=== PATIENT | female | born 1950 | race Caucasian/White ===

== ENCOUNTER 2016-06-27 22:39 | Inpatient (IN) | payer OTHER ==
[~2016-06-27] VITALS: Ht 152.4 cm; Wt 84.0 kg
[~2016-06-27 22:39] MED LIST: ASPI-664 PO; CLOP75TA27 PO; LOSA1TAB9 PO; METF-480 PO; NPH,100C2 SQ; SITA100T8 PO
[2016-06-27 23:34] LABS: BASOPHILS % 1.2 % (0.0-2.0); EOSINOPHILS # 0.1 10^3/ul (0.0-0.5); EOSINOPHILS % 2.7 % (0.0-7.0); HEMATOCRIT 39.6 % (37.0-47.0); HEMOGLOBIN 13.4 g/dl (12.0-16.0); LYMPHOCYTES # 1.2 10^3/ul (0.8-2.9); LYMPHOCYTES % 34.7 % (15.0-51.0); MEAN CORPUSCULAR HEMOGLOBIN 29.9 pg (29.0-33.0); MEAN CORPUSCULAR HGB CONC 33.8 g/dl (32.0-37.0); MEAN CORPUSCULAR VOLUME 88.5 fl (82.0-101.0); MEAN PLATELET VOLUME 9.1 fl (7.4-10.4); MONOCYTE # 0.4 10^3/ul (0.3-0.9); MONOCYTES % 10.5 % (0.0-11.0); NEUTROPHIL # 1.8 10^3/ul (1.6-7.5); NEUTROPHILS % 50.9 % (39.0-77.0); PLATELET COUNT 124 10^3/UL (140-440); RED BLOOD COUNT 4.47 10^6/ul (4.20-5.40); RED CELL DISTRIBUTION WIDTH 13.9 % (11.5-14.5); UNCORRECTED WBC 3.5 10^3/ul (4.8-10.8); WHITE BLOOD COUNT 3.5 10^3/ul (4.8-10.8)
[2016-06-27 23:35] LABS: CONDITION 1
[2016-06-27 23:43] LABS: ALBUMIN 4.6 g/dl (3.3-4.9); CHLORIDE 101 mmol/L (97-110); INR 1.01; PROTIME 13.3 Sec (12.2-14.2); SODIUM 144 mmol/L (135-144)
[2016-06-27 23:44] LABS: PARTIAL THROMBOPLASTIN TIME 38.2 Sec (25.0-35.0); POTASSIUM 4.9 mmol/L (3.5-5.1)
[2016-06-27 23:46] LABS: ALANINE AMINOTRANSFERASE 63 IU/L (13-69); ALBUMIN/GLOBULIN RATIO 1.02; ALKALINE PHOSPHATASE 213 IU/L (42-121); ANION GAP 26 (8-16); ASPARTATE AMINO TRANSFERASE 54 IU/L (15-46); BILIRUBIN,INDIRECT 0.1 mg/dl (0-1.1); BILIRUBIN,TOTAL 0.1 mg/dl (0.2-1.3); BLOOD UREA NITROGEN 16 mg/dl (7-20); CARBON DIOXIDE 22 mmol/L (21-31); GLUCOSE 191 mg/dl (70-220); TOTAL PROTEIN 9.1 g/dl (6.1-8.1)
[2016-06-27 23:47] LABS: CALCIUM 9.5 mg/dl (8.4-10.2)
--- NOTE | 2016-06-27 23:53 | RADRPT ---
PROCEDURE: XR Chest. CLINICAL INDICATION: Chest pain. TECHNIQUE: Single frontal view of the chest was obtained COMPARISON: 01/31/2009. FINDINGS: Cardiomegaly. Lungs are substantially clear. There is no pleural effusion or pneumothorax. IMPRESSION: No acute cardiopulmonary disease. RPTAT: [facility] Physician Bubba Date Time Electronically viewed and signed by Cheryl Lacy Physician on 06/27/2016 23:53 RS/
[2016-06-27 23:55] LABS: B-TYPE NATRIURETIC PEPTIDE 183 PG/ML (0-125)
[2016-06-28 00:06] LABS: TROPONIN-I < 0.012 ng/ml (0.00-0.12)
--- NOTE | 2016-06-28 01:51 | ERA ---
ER Documentation Chief Complaint Date/Time DATE: 06/28/16 TIME: 01:50 Chief Complaint SOB HPI This is a 66 year female, no chest pain or shortness of breath via ambulance. Chest pain is pressure-like. Given nitro and filled with minimal relief. No nausea no vomiting no chills. No not other current complaints. No radiations. ROS All systems reviewed and are negative except as per history of present illness. Medications Home Meds Reported Medications Metformin* (Glucophage*) 850 Mg Tablet, 850 MG PO DAILY 04/23/13 Clopidogrel Bisulfate (Clopidogrel) 75 Mg Tablet, 75 MG PO DAILY 04/23/13 Aspirin (Aspirin) 81 Mg Tablet.dr, 81 MG PO DAILY 04/23/13 Nph, Human Insulin Isophane (Novolin N) 100 U/Ml Cartridge, 0 SQ BID 03/01/12 Losartan-Hydrochlorothiazide (Hyzaar) 1 Tab Tablet, 1 TAB PO DAILY 03/01/12 Sitagliptin* (Januvia*) 100 Mg Tablet, 100 MG PO DAILY 03/01/12 Allergies Allergies: Coded Allergies: No Known Allergy (Unverified , 03/01/12) PMhx/Soc History of Surgery: Yes (OPEN HEART SURGERY) Anesthesia Reaction: No Hx Neurological Disorder: No Hx Respiratory Disorders: No Hx Cardiac Disorders: Yes Hx Psychiatric Problems: No Hx Miscellaneous Medical Probl: No Hx Alcohol Use: No Hx Substance Use: No Hx Tobacco Use: No Smoking Status: Never smoker Physical Exam Vitals Vital Signs Date Time Temp Pulse Resp B/P Pulse Ox O2 Delivery O2 Flow Rate FiO2 06/28/16 01:00 80 18 136/65 97 Room Air 3.0 Nasal Cannula 06/27/16 23:24 84 19 130/58 98 Room Air 06/27/16 23:05 Nasal Cannula 2 06/27/16 22:52 98.1 89 17 114/63 95 Physical Exam Const: [] Head: Atraumatic Eyes: Normal Conjunctiva ENT: Normal External Ears, Nose and Mouth. Neck: Full range of motion..~ No meningismus. Resp: Clear to auscultation bilaterally Cardio: Regular rate and rhythm, no murmurs Abd: Soft, non tender, non distended. Normal bowel sounds Skin: No petechiae or rashes Back: No midline or flank tenderness Ext: No cyanosis, or edema Neur: Awake and alert Psych: Normal Mood and Affect Result Diagram: 06/27/16231706/27/168 Results 24 hrs Laboratory Tests Test 06/27/16 23:18 Activated Partial Thromboplast Time 38.2Sec Alanine Aminotransferase (ALT/SGPT) 63IU/L Albumin 4.6g/dl Albumin/Globulin Ratio 1.02 Alkaline Phosphatase 213IU/L Anion Gap 26 Aspartate Amino Transf (AST/SGOT) 54IU/L B-Type Natriuretic Peptide 183PG/ML Basophils # 0.010^3/ul Basophils % 1.2% Blood Urea Nitrogen 16mg/dl Calcium Level 9.5mg/dl Carbon Dioxide Level 22mmol/L Chloride Level 101mmol/L Creatinine 0.80mg/dl Direct Bilirubin 0.00mg/dl Eosinophils # 0.110^3/ul Eosinophils % 2.7% Globulin 4.50g/dl Glucose Level 191mg/dl Hematocrit 39.6% Hemoglobin 13.4g/dl INR International Normalized Ratio 1.01 Indirect Bilirubin 0.1mg/dl Lymphocytes # 1.210^3/ul Lymphocytes % 34.7% Mean Corpuscular Hemoglobin 29.9pg Mean Corpuscular Hemoglobin Concent 33.8g/dl Mean Corpuscular Volume 88.5fl Mean Platelet Volume 9.1fl Monocytes # 0.410^3/ul Monocytes % 10.5% Neutrophils # 1.810^3/ul Neutrophils % 50.9% Nucleated Red Blood Cells # 0.010^3/ul Nucleated Red Blood Cells % 0.0/100WBC Platelet Count 84329^3/UL Potassium Level 4.9mmol/L Prothrombin Time 13.3Sec Prothrombin Time Ratio 1.0 Red Blood Count 4.4710^6/ul Red Cell Distribution Width 13.9% Sodium Level 144mmol/L Total Bilirubin 0.1mg/dl Total Protein 9.1g/dl Troponin I < 0.012ng/ml White Blood Count 3.510^3/ul Procedures/MDM EKG: Rate/Rhythm: Normal Sinus Rhythm QRS, ST, T-waves: No changes consistent w/ acute ischemia Impression: No evidence of ischemia or arrhythmia Chest X-ray 1V Interpreted by me: Soft Tissue: No acute abnormalities Bones: No acute abnormalities Mediastinum/Cardiac Silhouette/Lungs: No acute abnormalities Patient's symptoms are concerning for cardiac cause will require inpatient workup and continuous monitoring. Further w/u for ischemia, arrhythmia, PE or dissection will be deferred to the inpatient team. Accepting Care Team: Current data and ongoing care discussed. Time: 1 AM Primary Provider: Hospitalist Consulting: [XOXOXO] Outstanding Data: none Departure Diagnosis: Primary Impression: Chest pain Qualified Code: R07.9 - Chest pain, unspecified type Condition: Serious JOANIE PAGAN Jun 28, 2016 01:51
[2016-06-28] MEDS ORDERED: ZOLPIDEM 5 MG TAB PO PRN (03:30)
[2016-06-28] MEDS ORDERED: NITROGLYCERIN (SL) 0.4 MG TAB SL PRN (03:30)
[2016-06-28] MEDS ORDERED: ACETAMINOPHEN 325 MG TAB PO PRN (03:30)
[2016-06-28] MEDS ORDERED: HYDROCODONE/APAP (5/325) TAB PO PRN (03:30)
[2016-06-28] MEDS ORDERED: ONDANSETRON 4 MG INJ IV PRN (03:30)
[2016-06-28] MEDS ORDERED: morphine 2 MG INJ IV PRN (03:30)
[2016-06-28] MEDS ORDERED: NACL 0.9% 3 ML SYG IV SCH (03:30)
[2016-06-28] MEDS ORDERED: GLUCOSE GEL 15 GRAM TUBE BUCCAL PRN (04:00)
[2016-06-28] MEDS ORDERED: GLUCAGON 1 MG INJ IM PRN (04:00)
[2016-06-28] MEDS ORDERED: DEXTROSE 50% 50 ML SYRINGE IV PRN ×2 (04:00)
[2016-06-28] MEDS ORDERED: GLUCOSE GEL 15 GRAM TUBE PO PRN ×2 (04:00)
[2016-06-28 06:08] LABS: HEMOGLOBIN 12.3 g/dl (12.0-16.0); MEAN CORPUSCULAR HEMOGLOBIN 30.2 pg (29.0-33.0); MEAN CORPUSCULAR HGB CONC 34.2 g/dl (32.0-37.0); MEAN CORPUSCULAR VOLUME 88.1 fl (82.0-101.0); MEAN PLATELET VOLUME 8.9 fl (7.4-10.4); PLATELET COUNT 110 10^3/UL (140-440); RED BLOOD COUNT 4.09 10^6/ul (4.20-5.40); RED CELL DISTRIBUTION WIDTH 13.6 % (11.5-14.5); UNCORRECTED WBC 2.9 10^3/ul (4.8-10.8); WHITE BLOOD COUNT 2.9 10^3/ul (4.8-10.8)
[2016-06-28 06:13] LABS: CONDITION 1
[2016-06-28 06:21] LABS: POTASSIUM 5.3 mmol/L (3.5-5.1)
[2016-06-28 06:24] LABS: CALCIUM 9.6 mg/dl (8.4-10.2); CREATININE 0.73 mg/dl (0.44-1.00); MAGNESIUM 1.8 mg/dl (1.7-2.5)
[2016-06-28 06:25] LABS: CHOL/HDL RATIO 7.2 RATIO
[2016-06-28 06:32] VITALS: TEMP 98.4
[2016-06-28] MEDS: INSULIN ASPART [NOVOLOG] 3 ML PEN SC SCH ×7 (08:00→21:00)
[2016-06-28] MEDS: metFORMIN 850 MG TAB PO SCH (08:00)
[2016-06-28] MEDS ORDERED: NON-FORMULARY/PATIENT OWN MED (Sitagliptin* (Januvia*) 100 MG) PO SCH (09:00)
[2016-06-28] MEDS: INSULIN GLARGINE [LANtus] 3 ML PEN SC SCH (09:00)
[2016-06-28] MEDS ORDERED: LOSARTAN 50 MG TAB PO SCH (09:00)
[2016-06-28] MEDS: LINAGLIPTIN 5 MG TABLET PO SCH (09:00)
[2016-06-28 09:52] LABS: EOSINOPHILS # 0.1 10^3/ul (0.0-0.5); LYMPHOCYTES # 0.8 10^3/ul (0.8-2.9); MONOCYTE # 0.5 10^3/ul (0.3-0.9); NEUTROPHIL # 1.5 10^3/ul (1.6-7.5)
--- NOTE | 2016-06-28 09:59 | HP ---
DATE OF ADMISSION: 06/27/2016 TIME: 6:50 a.m. CHIEF COMPLAINT: Chest pain. HISTORY OF PRESENT ILLNESS: The patient is a 66-year-old female with history of coronary artery dis ease, status post CABG in the past with 4-vessels bypass as well as multiple stents placed. Patient also has a history of hypertension and insulin-dependent diabetes. The patient presents with chest pain. She describes it as a pressure-like pain that began last night. There is radiation to her l eft arm and back. In the ER EKG showed no signs of acute ischemia. Troponins were negative. She s tates that her chest pain at this time has now resolved. PAST MEDICAL HISTORY: As per HPI. HOME MEDICATIONS: 1. Metformin. 2. Plavix. 3. Aspirin. 4. NPH Insulin. 5. Losartan. 6. Hydrochlorothiazide. 7. Januvia. ALLERGIES: NO KNOWN DRUG ALLERGIES. FAMILY HISTORY: Brother with heart disease, . SOCIAL HISTORY: Denies any alcohol, tobacco, or drug abuse. REVIEW OF SYSTEMS: A 12-point review of systems negative except that stated in HPI. PHYSICAL EXAMINATION: VITAL SIGNS: Temperature is 98.1, pulse 76, respiratory rate is 18, BP 169/72, saturation 98% on 3 liters. GENERAL: No acute distress, alert and oriented. HEENT: Normocephalic, atraumatic. LUNGS: Clear to auscultation. CARDIOVASCULAR: Regular rate and rhythm. ABDOMEN: Nondistended, nontender, soft, obese. EXTREMITIES: No clubbing, cyanosis, or edema. LABORATORIES: White count is 2.9; hemoglobin is 12.3, platelets 110. Chemistry: Sodium is 141, po tassium is 5.3, anion gap is 19, alkaline phosphatase is 213. Troponins are negative x2. INR is 1. 01. DIAGNOSTICS: Chest x-ray shows no acute disease. EKG shows sinus rhythm. No evidence of acute isc hemia or arrhythmia. ASSESSMENT AND PLAN: 1. Chest pain. The patient does have extensive history of coronary artery disease with a 4-vessel bypass in the past and multiple stents having been placed. We will continue the patient's home cardi ac meds. We will get a cardiology evaluation and a 2D echo. Trend the final troponin. 2. Insulin-dependent diabetes. We will treat with subcutaneous insulin and sliding scale. Check a n A1c and lipid panel. 3. Hypertension. Continue home Losartan and hydrochlorothiazide. 4. Thrombocytopenia is mild. We will monitor. 5. Prophylaxis: Lovenox. Dictated By: AVANI LEYVA/NTS Conf#: [id number] DID#: [id number]
[2016-06-28] MEDS: ENOXAPARIN 40 MG/0.4 ML SYG SC SCH (11:03)
[2016-06-28] MEDS: CLOPIDOGREL 75 MG TAB PO SCH (11:23)
--- NOTE | 2016-06-28 16:09 | CONS ---
Date/Time of Note Date/Time of Note DATE: 06/28/16 TIME: 16:07 Consult Date/Type/Reason Admit Date/Time Initial Consult Date Type of Consultation: internal medicine Subjective Patient denies any chest pain this morning in the emergency room Appears comfortable at rest No new events Objective Vital Signs Date Time Temp Pulse Resp B/P Pulse Ox O2 Delivery O2 Flow Rate FiO2 06/28/16 13:42 75 16 134/70 96 Room Air 06/28/16 09:00 3.0 06/28/16 06:32 98.4 PHYSICAL EXAMINATION: VITAL SIGNS: As above well-nourished well-developed [place] lady Respiratory Clear to auscultation no added sounds no rales or wheezes CARDIOVASCULAR: Regular rate and rhythm. ABDOMEN: Nondistended, nontender, soft, obese. EXTREMITIES: No clubbing, cyanosis, or edema. Results/Medications Result Diagram: 06/28/16 0533 06/28/16 0533 Results 24 hrs Laboratory Tests Test 06/27/16 23:18 06/28/16 05:33 06/28/16 10:07 06/28/16 12:20 Activated Partial Thromboplast Time 38.2 H Alanine Aminotransferase (ALT/SGPT) 63 Albumin 4.6 Albumin/Globulin Ratio 1.02 Alkaline Phosphatase 213 H Anion Gap 26 H 19 #H Aspartate Amino Transf (AST/SGOT) 54 H B-Type Natriuretic Peptide 183 H Basophils # 0.0 Basophils % 1.2 Blood Urea Nitrogen 16 17 Calcium Level 9.5 9.6 Carbon Dioxide Level 22 28 Chloride Level 101 103 Creatinine 0.80 0.73 Direct Bilirubin 0.00 Eosinophils # 0.1 0.1 Eosinophils % 2.7 3.0 Globulin 4.50 H Glucose Level 191 153 Hematocrit 39.6 36.0 L Hemoglobin 13.4 12.3 INR International Normalized Ratio 1.01 Indirect Bilirubin 0.1 Lymphocytes # 1.2 0.8 Lymphocytes % 34.7 27.0 Mean Corpuscular Hemoglobin 29.9 30.2 Mean Corpuscular Hemoglobin Concent 33.8 34.2 Mean Corpuscular Volume 88.5 88.1 Mean Platelet Volume 9.1 8.9 Monocytes # 0.4 0.5 Monocytes % 10.5 17.0 H Neutrophils # 1.8 1.5 L Neutrophils % 50.9 53.0 Nucleated Red Blood Cells # 0.0 Nucleated Red Blood Cells % 0.0 Platelet Count 124 L 110 L Potassium Level 4.9 5.3 H Prothrombin Time 13.3 Prothrombin Time Ratio 1.0 Red Blood Count 4.47 4.09 L Red Cell Distribution Width 13.9 13.6 Sodium Level 144 145 H Total Bilirubin 0.1 L Total Protein 9.1 H Troponin I < 0.012 < 0.010 < 0.010 White Blood Count 3.5 L 2.9 L Cholesterol Level 262 H Cholesterol/HDL Ratio 7.2 Differential Comment MANUAL DIFF HDL Cholesterol 36 Hemoglobin A1c 6.0 H LDL Cholesterol, Calculated 127 Magnesium Level 1.8 Triglycerides Level 494 H Bedside Glucose 131 Test 06/28/16 16:02 Bedside Glucose 219 Medications Current Medications Ondansetron HCl (Zofran Inj) 4 mg Q6H PRN IV NAUSEA AND/OR VOMITING; Start 06/28 at 03:30 Acetaminophen (Tylenol Tab) 650 mg Q6H PRN PO PAIN LEVEL 1-3 OR FEVER; Start at 03:30 Acetaminophen/ Hydrocodone Bitart ([place] (5/325)) 1 tab Q6H PRN PO MODERATE PAIN LEVEL 4-6; Start 06/28/16 at 03:30 Morphine Sulfate (morphine) 2 mg Q4H PRN IV SEVERE PAIN LEVEL 7-10; Start at 03:30 Zolpidem Tartrate (Ambien) 5 mg QHS PRN PO SLEEP; Start 06/28/16 at 03:30 Enoxaparin Sodium (Lovenox) 40 mg DAILY SC Last administered on 06/28/16 11:03 ; Admin Dose 40 MG; Start 06/28/16 at 09:00 Aspirin (Aspirin) 81 mg DAILY PO ; Start 06/29/16 at 09:00 Nitroglycerin (Nitroglycerin (Sl Tab) 0.4 Mg) 1 tab Q5M PRN SL CHEST PAIN; Start 06/28/16 at 03:30 Clopidogrel Bisulfate (plaVIX) 75 mg DAILY PO Last administered on 06/28/16 11: 23; Admin Dose 75 MG; Start 06/28/16 at 09:00 Diagnostic Test (Pha) (Accucheck) 1 ea 02 XX ; Start 06/29/16 at 02:00 Miscellaneous Information 1 ea NOTE XX ; Start 06/28/16 at 04:00 Glucose (Glutose) 15 gm Q15M PRN PO DECREASED GLUCOSE; Start 06/28/16 at 04:00 Glucose (Glutose) 22.5 gm Q15M PRN PO DECREASED GLUCOSE; Start 06/28/16 at 04:00 Dextrose (D50w Syringe) 25 ml Q15M PRN IV DECREASED GLUCOSE; Start 06/28/16 at 04:00 Dextrose (D50w Syringe) 50 ml Q15M PRN IV DECREASED GLUCOSE; Start 06/28/16 at 04:00 Glucagon (Glucagen) 1 mg Q15M PRN IM DECREASED GLUCOSE; Start 06/28/16 at 04:00 Glucose (Glutose) 15 gm Q15M PRN BUCCAL DECREASED GLUCOSE; Start 06/28/16 at 04: 00 Linagliptin (Tradjenta) 5 mg DAILY PO ; Start 06/28/16 at 09:00 Insulin Aspart (Novolog Insulin Pen) NOVOLOG *MILD* ALGORI... Q4 SC ; Start 06/28 at 09:00 Insulin Glargine (Lantus) 10 unit QAM SC ; Start 06/28/16 at 09:00 Hydrochlorothiazide (Hydrochlorothiazide) 12.5 mg DAILY PO ; Start 06/29/16 at 09:00 Losartan Potassium (Cozaar) 50 mg DAILY PO ; Start 06/29/16 at 09:00 Assessment/Plan Chief Complaint/Hosp Course ASSESSMENT AND PLAN: 1. Chest pain. Extensive cardiac history with 4 vessel coronary artery bypass graft surgery and stents placed. We'll resume outpatient medications obtained echocardiogram and have cardiology evaluation. May require outpatient stress test. 2. Insulin-dependent diabetes. We will treat with subcutaneous insulin and sliding scale. Check an A1c and lipid panel. 3. Hypertension. Continue home Losartan and hydrochlorothiazide. 4. Thrombocytopenia is mild. Continue to monitor 5. Prophylaxis: Lovenox. Problems: TONY RODRIGUEZ MD, [facility] Jun 28, 2016 16:09
[2016-06-28 17:35] VITALS: Ht 152.4 cm; Wt 84.0 kg
[2016-06-28 17:55] VITALS: BP 151/68; PULSE 81; RESP 20
--- NOTE | 2016-06-28 18:44 | CONS ---
DATE OF ADMISSION: 06/28/2016 DATE OF CONSULTATION: 06/28/2016 REFERRING PHYSICIAN: Dr. Molina and Dr. Hatfield. REASON FOR CONSULTATION: Chest pain. CHIEF COMPLAINT: Chest pain, shortness of breath. HISTORY OF PRESENT ILLNESS: Thank you for this referral. History was from the patient, discussion with her [id number]. This is a pleasant 66-year-old [place] female with history of coronary a rtery disease, status post 4-vessel bypass surgery in 2003, status post PCI, last one was about 6 ye ars ago, who came to emergency room with above complaint. The patient apparently has had chest pain for many months now, anteriorly. She says she had a stress test done by her cup trimming machine operator, ____ , about a year ago. She was told she had "50% to 60% blockage." She also had an episode of shortne ss of breath. She gets short of breath with any kind of activity. She says she was told by her car diologist that she had a "weak valve. I need to have a surgery." She came into emergency room this morning when her symptoms got severely worse suddenly. PAST MEDICAL HISTORY: Coronary artery disease, status post bypass graft, history of hypertension, d iabetes, dyslipidemia, obesity. MEDICATIONS AT HOME: Include: 1. Metformin. 2. Plavix. 3. Aspirin. 4. Insulin. 5. Losartan. 6. Hydrochlorothiazide. 7. Januvia. ALLERGIES: NO KNOWN DRUG ALLERGIES. FAMILY HISTORY: Brother with heart disease, . SOCIAL HISTORY: The patient quit smoking when she had her bypass surgery. REVIEW OF SYSTEMS: Negative, all except for above-mentioned. PHYSICAL EXAMINATION: VITAL SIGNS: Temperature 98.4, heart rate of 75, blood pressure 134/70, respiration rate of 18, sat urating 96%. HEENT: Normocephalic, atraumatic. Pupils equal and round. CARDIOVASCULAR: Regular rate and rhythm. Systolic ejection murmur radiating to carotids. PULMONARY: With no wheezes or rales. GASTROINTESTINAL: Obese, soft, nontender. EXTREMITIES: Trivial edema. NEUROLOGIC: Awake and alert. PSYCHIATRIC: Calm, pleasant. LABORATORY: Sodium 145, potassium 5.3, BUN of 17, creatinine 0.73, glucose 153. Hemoglobin A1c of 6. Cholesterol 262 with LDL of 127, triglyceride of 494, HDL 36. BNP is 183. EKG was personally reviewed, which showed normal sinus rhythm. Anterior infarct, age undetermined. Echocardiogram was personally reviewed. It showed normal LV systolic function. Probably moderate aortic stenosis. ASSESSMENT AND PLAN 1. Chest pain syndrome, rule acute coronary syndrome. 2. Coronary artery disease. 3. History of coronary bypass graft. 4. History of percutaneous coronary intervention. 5. Hypertension. 6. Morbid obesity. 7. Diabetes 8. Dyslipidemia. 9. Aortic stenosis, does not appear to be severe though. RECOMMENDATIONS: I will continue with the aspirin and Plavix. Losartan and hydrochlorothiazide jennifer l be continued. The patient will be started on a beta-estela. I will start her on Toprol-XL 25 at bedtime. Also, start her on Lipitor at nighttime. Rule out myocardial infarction. I will order a Lexiscan stress test for tomorrow to rule out significant obstructive coronary artery disease. Nit ro will be added, too. Dictated By: TALISHA CH MD AV/NTS Conf#: [id number] DID#: [id number] CC: TONY MOLINA MD; AVANI HATFIELD MD;*End*
[2016-06-28 20:03] VITALS: BP 144/67; PULSE 75; RESP 20
[2016-06-28] MEDS ORDERED: ATORVASTATIN 40 MG TAB PO SCH (21:00)
[2016-06-28] MEDS ORDERED: METOPROLOL (XL) 25 MG TAB PO SCH (21:00)
[2016-06-28] MEDS: ISOSORBIDE DINITRATE 5 MG TAB PO SCH (21:14)
[2016-06-29] VITALS (9 sets, daily range): BP systolic 104–143; BP diastolic 53–63; PULSE 58–104; RESP 18–19
[2016-06-29] MEDS ORDERED: ACCUCHECK AT 2AM (Patients on SS coverage) XX SCH ×2 (02:00)
[2016-06-29 07:03] LABS: HEMATOCRIT 38.2 % (37.0-47.0); HEMOGLOBIN 12.8 g/dl (12.0-16.0); MEAN CORPUSCULAR HEMOGLOBIN 29.6 pg (29.0-33.0); MEAN CORPUSCULAR HGB CONC 33.4 g/dl (32.0-37.0); MEAN CORPUSCULAR VOLUME 88.6 fl (82.0-101.0); MEAN PLATELET VOLUME 8.9 fl (7.4-10.4); PLATELET COUNT 117 10^3/UL (140-440); RED BLOOD COUNT 4.31 10^6/ul (4.20-5.40); RED CELL DISTRIBUTION WIDTH 13.9 % (11.5-14.5); UNCORRECTED WBC 3.1 10^3/ul (4.8-10.8); WHITE BLOOD COUNT 3.1 10^3/ul (4.8-10.8)
[2016-06-29 07:07] LABS: CONDITION 1; LH ANALYZER COMMENTS 1
[2016-06-29 07:09] LABS: POTASSIUM 4.8 mmol/L (3.5-5.1)
[2016-06-29 07:11] LABS: BILIRUBIN,INDIRECT 0.4 mg/dl (0-1.1); BILIRUBIN,TOTAL 0.4 mg/dl (0.2-1.3); CREATININE 0.75 mg/dl (0.44-1.00)
[2016-06-29 07:12] LABS: CALCIUM 10.1 mg/dl (8.4-10.2)
[2016-06-29] MEDS: metFORMIN 850 MG TAB PO SCH (08:00)
[2016-06-29] MEDS: INSULIN ASPART [NOVOLOG] 3 ML PEN SC SCH ×3 (08:05→17:34)
[2016-06-29] MEDS: LINAGLIPTIN 5 MG TABLET PO SCH (08:06)
[2016-06-29] MEDS: ENOXAPARIN 40 MG/0.4 ML SYG SC SCH (08:14)
[2016-06-29] MEDS: CLOPIDOGREL 75 MG TAB PO SCH (08:14)
[2016-06-29] MEDS: ISOSORBIDE DINITRATE 5 MG TAB PO SCH ×2 (08:15→13:44)
[2016-06-29] MEDS: INSULIN GLARGINE [LANtus] 3 ML PEN SC SCH (08:16)
[2016-06-29 08:49] LABS: MAGNESIUM 1.5 mg/dl (1.7-2.5)
[2016-06-29 08:51] LABS: THYROID STIMULATING HORMONE 2.79 MIU/L (0.465-4.680)
[2016-06-29] MEDS ORDERED: ASPIRIN 81 MG TAB PO SCH (09:00)
[2016-06-29] MEDS ORDERED: HYDROCHLOROTHIAZIDE 12.5 MG CAP PO SCH (09:00)
[2016-06-29] MEDS ORDERED: LOSARTAN 50 MG TAB PO SCH (09:00)
--- NOTE | 2016-06-29 09:14 | RADRPT ---
Echocardiogram Report Patient Name: LEVY RODRIGUEZ Gender: Female Date: 1950 Study Date: 28-Jun-2016 Motion Picture Actor: Eben Modi [facility] Location: [facility] Ref. Physician: AVANI AVILES Quality: Good Procedures: Transthoracic echocardiogram with complete 2D, M-Mode, and doppler examination. Indications: Chest Pain. 2D/M Mode Doppler Measurement Value Normal Ranges Measurement Value Normal Ranges LVIDd 2D 4.5 3.5 - 5.6 cm PATRICE Vmax 1.2 cm2 LVIDs 2D 2.0 2.1 - 4.1 cm PATRICE VTI 1.5 cm2 FS 2D 54.8 % AV Mean Markell 1.8 m/sec LVPWd 2D 0.9 0.6 - 1.1 cm AV Mean PG 14.0 mmHg IVSd 2D 0.9 0.6 - 1.1 cm AV Peak Markell 2.5 m/sec IVS/LVPW 2D 1.0 AV Peak PG 24.0 mmHg AoR Diam 2D 2.4 2.0 - 3.7 cm AV VTI 55.4 cm LA/Ao 2D 2 0 - 1 LVOT Mean Markell 0.8 m/sec EDV 2D 89.3 cm3 LVOT Mean PG 3.0 mmHg ESV 2D 8.2 cm3 LVOT Peak Markell 1.1 m/sec LA Dimen 2D 4.2 2.3 - 4.0 cm LVOT Peak PG 5.0 mmHg LVOT Diam 1.9 cm LVOT VTI 28.2 cm LVOT Area 2.8 cm2 MV E Peak Markell 1.1 m/sec MV A Peak Markell 0.8 m/sec MV E/A 1.3 MV Decel Time 239 msec MV E/A 1.3 TR Peak Markell 2.3 m/sec TR Peak PG 22.0 mmHg RVSP 25.0 mmHg Findings Left Ventricle: Normal left ventricular systolic function. Normal left ventricular cavity size. Normal left ventricular wall thickness. Ejection fraction is visually estimated at 65 %. Tissue Doppler/Mitral Doppler indices are within normal limits. Right Ventricle: Normal right ventricular size. Normal right ventricular systolic function. Left Atrium: There is mild enlargement of left atrium. Right Atrium: The right atrium is normal in size. Mitral Valve: Mitral valve leaflets appear mildly thickened. Mild mitral annular calcification. Trace mitral regurgitation. Aortic Valve: Aortic valve Max velocity 2.46 m/sec. Max PG 24.00 mmHg. Mean PG 14.00 mmHg. Aortic valve area 1.45 cm2. Aortic sclerosis without stenosis. Aortic cusps appear moderately calcified. Trace aortic valve regurgitation. Tricuspid Valve: Normal appearance of the tricuspid valve. Estimated peak PA systolic pressure 25 mmHg. There is mild tricuspid regurgitation. Pericardium: Normal pericardium with no significant pericardial effusion. Aorta: Normal aortic root. IVC: Normal size and normal respiratory collapse consistent with normal right atrial pressure. Conclusions 1.Normal left ventricular systolic function. Normal left ventricular cavity size. Normal left ventricular wall thickness. Ejection fraction is visually estimated at 65 %. Tissue Doppler/Mitral Doppler indices are within normal limits. 2.There is mild enlargement of left atrium. 3.Mitral valve leaflets appear mildly thickened. Mild mitral annular calcification. Trace mitral regurgitation. 4.Aortic valve Max velocity 2.46 m/sec. Max PG 24.00 mmHg. Mean PG 14.00 mmHg. Aortic valve area 1.45 cm2. Aortic sclerosis without stenosis. Aortic cusps appear moderately calcified. Trace aortic valve regurgitation. 5.Normal appearance of the tricuspid valve. Estimated peak PA systolic pressure 25 mmHg. There is mild tricuspid regurgitation. Electronically Signed By: Alvaro Figueroa 28-Jun-2016 15:40:50 -0800 Patient Name: LEVY RODRIGUEZ Study Date: 28-Jun-2016 [id number]
[2016-06-29] MEDS ORDERED: REGADENOSON 0.4 MG/5 ML SYG ONE (09:22)
[2016-06-29 09:27] LABS: CREATINE KINASE < 20 IU/L (23-200)
[2016-06-29 09:33] LABS: CK-MB 0.22 ng/ml (0.0-2.4); EOSINOPHILS # 0.1 10^3/ul (0.0-0.5); LYMPHOCYTES # 1.2 10^3/ul (0.8-2.9); MONOCYTE # 0.3 10^3/ul (0.3-0.9); NEUTROPHIL # 1.4 10^3/ul (1.6-7.5)
[2016-06-29 09:38] LABS: TROPONIN-I < 0.010 ng/ml (0.00-0.12)
--- NOTE | 2016-06-29 10:35 | PN ---
DATE: 06/29/2016 CARDIOLOGY FOLLOWUP NOTE SUBJECTIVE: Discussed with the staff. Rhythm strip was reviewed. Patient with no more chest pain or pressure. No palpitations. MEDICATIONS: Reviewed. PHYSICAL EXAMINATION: VITAL SIGNS: Temperature 98.6, heart rate of 60, blood pressure 108/53, respiration rate of 18, sat urating 98%. HEENT: Normocephalic, atraumatic. Pupils are equal. CARDIOVASCULAR: Regular rate and rhythm. PULMONARY: With no wheezes, no rales. GASTROINTESTINAL: Soft, nontender. EXTREMITIES: Trivial edema. NEUROLOGIC: Awake and alert. PSYCHIATRIC: Calm, pleasant. LABORATORY: Sodium 143, potassium 4.8, BUN of 21, creatinine 0.75, glucose 163. BNP 301. WBC of 3 .1, hemoglobin 12.8, platelets of 117. ASSESSMENT AND PLAN 1. Chest pain syndrome, rule acute coronary syndrome. 2. History of coronary artery disease, status post coronary bypass graft, history of percutaneous c oronary intervention. 3. Hypertension. 4. Mild to moderate aortic stenosis. 5. Diabetes. 6. Dyslipidemia. RECOMMENDATIONS: We will continue with the current cardiac care. Lexiscan stress test today is pen ding. Dictated By: TALISHA CH MD AV/JOSE EDUARDO Conf#: [id number] DID#: [id number] CC: AVANI AVILES MD;*End*
--- NOTE | 2016-06-29 12:48 | RADRPT ---
PROCEDURE: Lexiscan myocardial perfusion study CLINICAL INDICATION: 66 -year-old patient complaining of chest pain. TECHNIQUE: Lexiscan 0.4 mg intravenously separate acquisition gated myocardial perfusion SPECT usi ng Tc 99m Myoview 31.8 mCi intravenously at stress and Tc-99m Myoview, 10.2 mCi intravenously at res t was performed using the rest/stress sequence. Poststress Myoview SPECT images were obtained in th e supine position. COMPARISON: No prior studies. FINDINGS: Perfusion images reveal no evidence of perfusion defects. Lexiscan post stress gated SPECT images demonstrate no wall motion abnormalities. IMPRESSION: 1. No evidence of perfusion defects. 2. No wall motion abnormalities. 3. The left ventricle ejection fraction at stress is greater than 70%. A call report was made to Dr. Figueroa 12:46 p.m. on June 29, 2016 RPTAT: HH .Hayde Mak MD, Date Time Electronically viewed and signed by .Hayde Mak MD, MD on 06/29/2016 12:48 .L/
--- NOTE | 2016-06-29 15:06 | DS ---
Date/Time of Note Date/Time of Note DATE: 06/29/16 TIME: 15:01 Discharge Summary Admission/Discharge Info Admit Date/Time Jun 28, 2016 at 00:29 Discharge Date/Time Final Diagnosis 1. Chest pain, negative stress test 2. Coronary artery disease, status post coronary bypass graft, history of percutaneous coronary intervention, stable, follow up with cardiology. 3. Hypertension, stable 4. Mild to moderate aortic stenosis. 5. Diabetes mellitus, stable 6. Dyslipidemia., on statin Patient Condition: Stable Procedures [place] [address] Radiology Main Line: [phone] DIAGNOSTIC IMAGING REPORT Patient: LEVY RODRIGUEZ : 1950 Age: 66 Sex: F MR #: [id number] DOS: 06/29/16 0830 Ordering MD: TALISHA FIGUEROA MD [place] [facility] [place]Bed: [facility] PROCEDURE: Lexiscan myocardial perfusion study CLINICAL INDICATION: 66 -year-old patient complaining of chest pain. TECHNIQUE: Lexiscan 0.4 mg intravenously separate acquisition gated myocardial perfusion SPECT using Tc 99m Myoview 31.8 mCi intravenously at stress and Tc-99m Myoview, 10.2 mCi intravenously at rest was performed using the rest/stress sequence. Poststress Myoview SPECT images were obtained in the supine position. COMPARISON: No prior studies. FINDINGS: Perfusion images reveal no evidence of perfusion defects. Lexiscan post stress gated SPECT images demonstrate no wall motion abnormalities. IMPRESSION: 1. No evidence of perfusion defects. 2. No wall motion abnormalities. 3. The left ventricle ejection fraction at stress is greater than 70%. A call report was made to Dr. Figueroa 12:46 p.m. on June 29, 2016 RPTAT: HH .Hayde Mak MD, MD Date Time Electronically viewed and signed by .Hayde Mak MD, MD on 06/29/2016 12:48 .L/ CC: TALISHA FIGUEROA MD Hx of Present Illness The patient is a 66-year-old female with history of coronary artery disease, status post CABG in the past with 4-vessels bypass as well as multiple stents placed. Patient also has a history of hypertension and insulin-dependent diabetes. The patient presents with chest pain. She describes it as a pressure -like pain that began last night. There is radiation to her left arm and back. In the ER EKG showed no signs of acute ischemia. Troponins were negative. She states that her chest pain at this time has now resolved. Hospital Course Patient has no chest pain after admission. Troponin negative. Patient has a negative stress thallium test today. She is discharged home and instructed to follow up with PCP and cardiology outpatient. Home Meds Reported Medications Metformin* (Glucophage*) 850 Mg Tablet, 850 MG PO DAILY 04/23/13 Clopidogrel Bisulfate (Clopidogrel) 75 Mg Tablet, 75 MG PO DAILY 04/23/13 Aspirin (Aspirin) 81 Mg Tablet.dr, 81 MG PO DAILY 04/23/13 Nph, Human Insulin Isophane (Novolin N) 100 U/Ml Cartridge, 0 SQ BID 03/01/12 Losartan-Hydrochlorothiazide (Hyzaar) 1 Tab Tablet, 1 TAB PO DAILY 03/01/12 Sitagliptin* (Januvia*) 100 Mg Tablet, 100 MG PO DAILY 03/01/12 Pending Labs Laboratory Tests Test 06/28/16 16:02 06/28/16 17:30 06/28/16 21:13 06/29/16 05:57 Bedside Glucose 219mg/dL (70-220) 256mg/dL (70-220) 158mg/dL (70-220) Alanine Aminotransferase (ALT/SGPT) 55IU/L (13-69) Albumin 4.0g/dl (3.3-4.9) Albumin/Globulin Ratio 1.00 Alkaline Phosphatase 118IU/L (42-121) Anion Gap 17 (8-16) Aspartate Amino Transf (AST/SGOT) 48IU/L (15-46) B-Type Natriuretic Peptide 301PG/ML (0-125) Band Neutrophils % 5.0% (0.0-5.0) Basophils # 10^3/ul (0.0-0.1) Basophils % % (0.0-2.0) Blood Urea Nitrogen 21mg/dl (7-20) Calcium Level 10.1mg/dl (8.4-10.2) Carbon Dioxide Level 31mmol/L (21-31) Chloride Level 100mmol/L (97-110) Creatine Kinase < 20IU/L (23-200) Creatine Kinase Index Creatinine 0.75mg/dl (0.44-1.00) Creatinine Kinase MB (Mass) 0.22ng/ml (0.0-2.4) Differential Comment MANUAL DIFF Direct Bilirubin 0.00mg/dl (0.00-0.20) Eosinophils # 0.110^3/ul (0.0-0.5) Eosinophils % 4.0% (0.0-7.0) Free Thyroxine 1.34ng/dl (0.78-2.44) Globulin 4.00g/dl (1.3-3.2) Glucose Level 163mg/dl (70-220) Hematocrit 38.2% (37.0-47.0) Hemoglobin 12.8g/dl (12.0-16.0) Indirect Bilirubin 0.4mg/dl (0-1.1) Lymphocytes # 1.210^3/ul (0.8-2.9) Lymphocytes % 38.0% (15.0-51.0) Magnesium Level 1.5mg/dl (1.7-2.5) Mean Corpuscular Hemoglobin 29.6pg (29.0-33.0) Mean Corpuscular Hemoglobin Concent 33.4g/dl (32.0-37.0) Mean Corpuscular Volume 88.6fl (82.0-101.0) Mean Platelet Volume 8.9fl (7.4-10.4) Monocytes # 0.310^3/ul (0.3-0.9) Monocytes % 9.0% (0.0-11.0) Neutrophils # 1.410^3/ul (1.6-7.5) Neutrophils % 44.0% (39.0-77.0) Nucleated Red Blood Cells # 10^3/ul (0.0-0.0) Nucleated Red Blood Cells % /100WBC (0.0-0.0) Phosphorus Level 5.0mg/dl (2.5-4.9) Platelet Count 38678^3/UL (140-440) Potassium Level 4.8mmol/L (3.5-5.1) Red Blood Count 4.3110^6/ul (4.20-5.40) Red Cell Distribution Width 13.9% (11.5-14.5) Sodium Level 143mmol/L (135-144) Thyroid Stimulating Hormone (TSH) 2.790MIU/L (0.465-4.680) Total Bilirubin 0.4mg/dl (0.2-1.3) Total Protein 8.0g/dl (6.1-8.1) Troponin I < 0.010ng/ml (0.00-0.12) White Blood Count 3.110^3/ul (4.8-10.8) Test 06/29/16 07:21 06/29/16 13:42 Bedside Glucose 148mg/dL (70-220) 190mg/dL (70-220) BRUCE GEORGE MD Jun 29, 2016 15:06
--- NOTE | 2016-06-30 13:03 | TMLRPT ---
DATE: 06/29/2016 LEXISCAN STRESS TEST INDICATIONS: Chest pain and coronary artery disease. DESCRIPTION: Lexiscan was performed as per protocol. FINDINGS: 1. Baseline EKG has normal sinus rhythm . Heart at baseline is 66, blood pressure 165/74, he art rate at peak of stress is 85 with blood pressure of 155/74. 2. Less than [address] depression noted diffusely with Lexiscan. 3. No significant erythema is noted. CONCLUSION: Completion of Lexiscan stress test per protocol. See nuclear medicine results for final report. Dictated By: TALISHA CH MD AV/NTS Conf#: [id number] DID#: [id number] CC: AVANI AVILES MD;*EndCC*
== END 2016-06-29 18:25 | disposition home or self-care (01) | DRG 313 ==
LOC: E/R 22:39 → MS4 06-28 00:29
PROVIDERS: ADMIT Internal Medicine; ATTEND Internal Medicine
DX: R07.89 Other chest pain (principal); I25.10 Atherosclerotic heart disease of native coronary artery without angina pectoris; I10 Essential (primary) hypertension; Z98.61 Coronary angioplasty status; Z95.1 Presence of aortocoronary bypass graft; I35.0 Nonrheumatic aortic (valve) stenosis; E11.9 Type 2 diabetes mellitus without complications; E78.5 Hyperlipidemia, unspecified
CPT/HCPCS: 36415; 71010; 78452; 80048; 80053; 80061; 82550; 82553; 82962; 83036; 83735; 83880; 84100; 84439; 84443; 84484; 85025; 85610; 85730; 93005; 93017; 93306; 96372; A9500; A9505; J1650; J1815; J2785

== ENCOUNTER 2018-08-24 07:18 | Emergency (ER) | payer MEDICARE, OTHER ==
[~2018-08-24] VITALS: Ht 165.1 cm; Wt 81.0 kg
[~2018-08-24 07:18] MED LIST changes: +ASPI-1044 PO; -ASPI-664 PO; +SITA100T11 PO; -SITA100T8 PO
[2018-08-24 07:23] VITALS: Ht 165.1 cm; Wt 81.0 kg
--- NOTE | 2018-08-24 07:27 | ERD ---
ER Documentation Chief Complaint Chief Complaint HPI 68-year-old woman here for hypertension and complaints of dizziness, she checked her blood pressure multiple times since last night and states it was higher than normal and she felt dizzy and anxious as well. She denies chest pain or shortness of breath, no headache or blurry vision, no slurred speech, no weakness in arms or legs. Patient denies fevers or chills. ROS All systems reviewed and are negative except as per history of present illness. Medications Home Meds Active Scripts Ondansetron Hcl* (Zofran*) 4 Mg Tablet, 4 MG PO Q8H PRN for NAUSEA AND/OR VOMITING, #30 TAB Prov:SERJIO HORVATH MD 08/24/18 Reported Medications Insulin Human Regular (Novolin-R U-100) 100 Unit/Ml Soln, 24 UNITS SC AC BREAKFAST DINNER, EA 08/24/18 Carvedilol* (Coreg*) 12.5 Mg Tablet, 12.5 MG PO BID, #60 TAB 08/24/18 Alprazolam* (Alprazolam*) 0.5 Mg Tablet, 0.5 MG PO HS PRN for ANXIETY, TAB 08/24/18 Hydroxyzine Hcl* (Hydroxyzine Hcl*) 25 Mg Tablet, 25 MG PO Q8H PRN for ITCHING, #30 TAB 08/24/18 Ranolazine* (Ranexa*) 1,000 Mg Tab.sr.12h, 1 TAB ORAL DAILY 08/24/18 Theophylline Anhydrous* (Gary-24*) 300 Mg Cap.sr.24h, 300 MG PO DAILY, CAP 08/24/18 Empagliflozin (Jardiance) 25 Mg Tablet, 1 TAB ORAL DAILY 08/24/18 Icosapent Ethyl (VASCEPA) 1 Gm Capsule, 1 CAP ORAL DAILY 08/24/18 Omeprazole* (Omeprazole*) 20 Mg Capsule.dr, 1 CAP ORAL DAILY 08/24/18 Alprazolam* (Alprazolam*) 0.5 Mg Tablet, 1 TAB ORAL DAILY PRN for ANXIETY 08/24/18 Ergocalciferol (Vitamin D2) (VITAMIN D2) 50,000 Unit Capsule, 1 TAB ORAL WEEKLY ON Tuesday08/24/18 Evolocumab (Repatha Syringe) 140 Mg/1 Ml Syringe, 140 MG SQ [id number] 08/24/18 Metformin* (Glucophage*) 850 Mg Tablet, 850 MG PO TID 04/23/13 Clopidogrel Bisulfate (Clopidogrel) 75 Mg Tablet, 75 MG PO DAILY 04/23/13 Aspirin Delayed Release (Aspirin Delayed Release) 81 Mg Tablet.dr, 81 MG PO ZEENAT Y 04/23/13 Losartan-Hydrochlorothiazide (Hyzaar) 1 Tab Tablet, 1 TAB PO DAILY 03/01/12 Sitagliptin* (Januvia*) 100 Mg Tablet, 100 MG PO DAILY 03/01/12 Discontinued Reported Medications Nph, Human Insulin Isophane (Novolin N) 100 U/Ml Cartridge, 0 SQ BID 03/01/12 Allergies Allergies: Coded Allergies: No Known Allergy (Unverified , 08/24/18) PMhx/Soc Coronary artery disease status post four-vessel coronary artery bypass with prior stents as well, hypertension, diabetes mellitus, aortic stenosis, dyslipidemia History of Surgery: Yes (open heart surgery, Cabg with 4 vessels and mult stents ) Anesthesia Reaction: No Hx Neurological Disorder: No Hx Respiratory Disorders: No Hx Cardiac Disorders: Yes (CAD) Hx Psychiatric Problems: No Hx Miscellaneous Medical Probl: No Hx Alcohol Use: No Hx Substance Use: No Hx Tobacco Use: No FmHx Family History: diabetes Physical Exam Vitals Vital Signs Date Temp Pulse Resp B/P (MAP) Pulse Ox O2 O2 Flow FiO2 Time Delivery Rate 08/24/18 77 17 151/78 99 Room Air 08:28 (102) 08/24/18 98.2 79 18 170/74 100 07:23 (106) Physical Exam GENERAL: Well-developed, well-nourished, well-hydrated, in no apparent distress, looks nontoxic in appearance HEENT: Moist mucous membranes, pink conjunctiva, no cervical spine tenderness or step-off deformities, no goiter, no jaundice or icterus, extraocular movements intact without pain. No submandibular induration, and no pharyngeal erythema NEURO: Alert and oriented 3, cranial nerves II through XII intact bilaterally, pupils equal round reactive to light, no focal deficits or facial asymmetry, sensation intact distally Strength 5/5 in upper and lower extremities bilater ally CARDIAC: Regular rate and rhythm, no murmurs rubs or gallops LUNGS: Clear bilaterally no wheezing crackles or stridor ABDOMEN: Soft nontender, no guarding, no rigidity, no rebound, no psoas sign no obturator sign. Normoactive bowel sounds SKIN: Warm and dry to touch, no abrasions, contusions, or hematomas, no lacerations, no ecchymosis, no target lesions, and without ulcers EXTREMITIES: No clubbing cyanosis or edema, calves are bilaterally symmetrical, no Homans sign, no popliteal cord sign. Distal pulses equal and bilateral PSYCH: Normal affect without agitation or irritability Result Diagram: 08/24/18 0750 08/24/18 0750 Results 24 hrs Laboratory Tests Test 08/24/18 07:50 White Blood Count 4.1 10^3/ul Red Blood Count 5.13 10^6/ul Hemoglobin 14.1 g/dl Hematocrit 44.8 % Mean Corpuscular Volume 87.3 fl Mean Corpuscular Hemoglobin 27.5 pg Mean Corpuscular Hemoglobin Concent 31.5 g/dl Red Cell Distribution Width 14.6 % Platelet Count 133 10^3/UL Mean Platelet Volume 10.8 fl Immature Granulocytes % 0.200 % Neutrophils % 68.3 % Lymphocytes % 19.3 % Monocytes % 10.0 % Eosinophils % 1.7 % Basophils % 0.5 % Nucleated Red Blood Cells % 0.0 /100WBC Immature Granulocytes # 0.010 10^3/ul Neutrophils # 2.8 10^3/ul Lymphocytes # 0.8 10^3/ul Monocytes # 0.4 10^3/ul Eosinophils # 0.1 10^3/ul Basophils # 0.0 10^3/ul Nucleated Red Blood Cells # 0.0 10^3/ul Urine Color STRAW Urine Clarity CLEAR Urine pH 5.0 Urine Specific [place] 1.010 Urine Ketones TRACE mg/dL Urine Nitrite NEGATIVE mg/dL Urine Bilirubin NEGATIVE mg/dL Urine Urobilinogen NEGATIVE mg/dL Urine Leukocyte Esterase NEGATIVE Reji/ul Urine Microscopic RBC 1 /HPF Urine Microscopic WBC 1 /HPF Urine Hemoglobin 1+ mg/dL Urine Glucose 3+ mg/dL Urine Total Protein 2+ mg/dl Sodium Level 140 mmol/L Potassium Level 4.5 mmol/L Chloride Level 104 mmol/L Carbon Dioxide Level 25 mmol/L Anion Gap 11 Blood Urea Nitrogen 16 mg/dl Creatinine 0.68 mg/dl Est Glomerular Filtrat Rate mL/min > 60 mL/min Glucose Level 180 mg/dl Calcium Level 10.4 mg/dl Total Bilirubin 0.6 mg/dl Direct Bilirubin 0.00 mg/dl Indirect Bilirubin 0.6 mg/dl Aspartate Amino Transf (AST/SGOT) 49 IU/L Alanine Aminotransferase (ALT/SGPT) 44 IU/L Alkaline Phosphatase 115 IU/L Troponin I 0.020 ng/ml Total Protein 9.1 g/dl Albumin 4.6 g/dl Globulin 4.50 g/dl Albumin/Globulin Ratio 1.02 Lipase 161 U/L Current Medications Medications Dose Sig/[place] Start Time Status Last (Trade) Ordered Route PRN Stop Time Admin Dose Reason Admin Sodium 500 ml @ Q1H STAT 08/24/18 DC 08/24/18 Chloride 500 mls/hr IV 07:33 08/24/18 08:01 08:32 Ondansetron 4 mg ONCE STAT 08/24/18 DC 08/24/18 HCl (Zofran IV 07:33 08/24/18 08:01 Inj) 07:34 40 ml ONCE STAT 08/24/18 DC 08/24/18 Miscellaneous PO 07:33 08/24/18 08:01 Medication 07:34 (Gi Cocktail (2)) Belladonna/ 2 tab ONCE STAT 08/24/18 DC 08/24/18 Phenobarbital PO 07:33 08/24/18 08:01 () 07:34 Procedures/MDM IV line was established patient was placed on shelter monitor rhythm strip revealed a sinus rhythm at about 80 bpm with upright P and T waves. Patient was afebrile I administered 500 cc normal saline IV, Zofran 4 mg IV, GI cocktail p.o. EKG performed, read by me revealed a normal sinus rhythm at 77 bpm, normal axis, narrow QRS complex, no concerning ST elevations or depressions noted CBC and electrolytes are normal, liver function tests were normal, troponin was negative Differential diagnoses considered, included but not limited to acute coronary syndrome, pulmonary embolism, aortic dissection, abdominal aortic aneurysm, sepsis, stroke, meningitis, encephalitis, pneumonia, appendicitis, cholecystitis, bowel obstruction, pyelonephritis, nephrolithiasis, cystitis, as well as metabolic, hematologic, and electrolyte abnormalities. As well as abscess, cellulitis, fractures, and dislocations. Patient feels much better at this time, and vital signs are normal, symptoms have improved. I did give strict instructions to return to the ED if symptoms continue or worsen, patient will otherwise follow-up with primary care physician. Patient understood instructions and agreed to plan. Disclaimer: Inadvertent spelling and grammatical errors are likely due to EHR/dictation software use and do not reflect on the overall quality of patient care. Also, please note that the electronic time recorded on this note does not necessarily reflect the actual time of the patient encounter. Departure Diagnosis: Primary Impression: Hypertension Hypertension type: essential hypertension Qualified Codes: I10 - Essential (primary) hypertension Additional Impression: Dizziness Condition: Good SERJIO HORVATH MD Aug 24, 2018 07:27
[2018-08-24] MEDS ORDERED: SOD CHLORIDE 0.9% 500 ML IV STA (07:33)
[2018-08-24] MEDS ORDERED: ONDANSETRON 4 MG INJ IV STA (07:33)
[2018-08-24] MEDS ORDERED: BELLADONNA/PHENOBARBITAL TAB PO STA (07:33)
[2018-08-24] MEDS ORDERED: LIDOCAINE/MYLANTA 40 ML BTL PO STA (07:33)
[2018-08-24] MEDS ORDERED: EVOL140S SQ (08:05)
[2018-08-24] MEDS ORDERED: ALPR0.5T6 ORAL (08:11)
[2018-08-24] MEDS ORDERED: EMPA25TA ORAL (08:11)
[2018-08-24] MEDS ORDERED: THP300CCR PO (08:11)
[2018-08-24] MEDS ORDERED: RANO10002 ORAL (08:11)
[2018-08-24] MEDS ORDERED: ICOS1CAP ORAL (08:11)
[2018-08-24] MEDS ORDERED: OMEP20CA16 ORAL (08:11)
[2018-08-24] MEDS ORDERED: ERGO500013 ORAL (08:11)
[2018-08-24] MEDS ORDERED: HYDR-843 PO (08:14)
[2018-08-24] MEDS ORDERED: ALPR0.5T6 PO (08:14)
[2018-08-24] MEDS ORDERED: CARV12.598 PO (08:16)
[2018-08-24] MEDS ORDERED: SS SC (08:19)
[2018-08-24 08:28] VITALS: BP 151/78; PULSE 77; RESP 17
[2018-08-24] MEDS ORDERED: ONDA4TAB8 PO (08:44)
== END 2018-08-24 09:03 | disposition home or self-care (01) ==
LOC: E/R 07:18
DX: I10 Essential (primary) hypertension (principal); E11.9 Type 2 diabetes mellitus without complications; I25.10 Atherosclerotic heart disease of native coronary artery without angina pectoris; Z79.01 Long term (current) use of anticoagulants; Z79.4 Long term (current) use of insulin; Z95.1 Presence of aortocoronary bypass graft; Z79.82 Long term (current) use of aspirin; Z98.61 Coronary angioplasty status
CPT/HCPCS: 36415; 80053; 81001; 83690; 84484; 85025; 93005; 96374; 99284; J2405; J7040